=== PATIENT | female | born 1945 | race Caucasian/White ===

== ENCOUNTER 2016-11-17 10:43 | Emergency (ER) | payer MEDICARE, OTHER ==
[2016-11-17 11:41] LABS: BASOPHILS 0.2 % (0.0-2.0); EOSINOPHILS 0.2 % (0-7); HEMATOCRIT 44.5 % (36.0-48.0); IMMATURE GRANULOCYTES 0.2 % (0-5); LYMPHOCYTES 13.2 % (15-50); MCH 30.8 pg (26.0-34.0); MCHC 33.7 g/dL (31.0-37.0); MCV 91.4 fL (80.0-100.0); MEAN PLATELET VOLUME 10.5 fL (7.4-10.4); MONOCYTES 7.6 % (2-11); NEUTROPHILS 78.6 % (40-80); RBC 4.87 10x6/uL (4.00-5.40); RDW 12.6 % (11.5-14.5); WBC 13.8 10x3/uL (4.8-10.8)
[2016-11-17 11:45] LABS: PLATELET COUNT 187 10x3/uL (130-400)
[2016-11-17 12:07] LABS: ALBUMIN 3.8 g/dL (3.4-5.0); ANION GAP 11.3 mmol/L (8-16); BILIRUBIN - TOTAL 0.59 mg/dL (0.2-1.3); CALCIUM 9.8 mg/dL (8.5-10.1); CARBON DIOXIDE 29.5 mmol/L (21.0-32.0); CREATININE - SERUM 0.8 mg/dL (0.6-1.3); POTASSIUM - SERUM 3.8 mmol/L (3.5-5.1); PROTEIN - SERUM 7.9 g/dL (6.4-8.2)
[2016-11-17 12:12] LABS: APPEARANCE CLEAR (CLEAR); BILIRUBIN NEGATIVE (NEGATIVE); COLOR YELLOW (YELLOW); GLUCOSE NEGATIVE (NEGATIVE); KETONE NEGATIVE (NEGATIVE); LEUKOCYTE ESTERASE TRACE (NEGATIVE); NITRITE NEGATIVE (NEGATIVE); PROTEIN NEGATIVE (NEGATIVE); UROBILINOGEN NORMAL (NORMAL)
[2016-11-17 12:13] LABS: BACTERIA FEW /hpf (NONE SEEN); EPITHELIAL CELLS 0-5 /hpf (0-5); RED CELLS - URINE OCC /hpf (0-5); WHITE CELLS - URINE 0-5 /hpf (0-5)
== END 2016-11-17 14:04 | disposition home or self-care (01) ==
LOC: D.ER 10:43
PROVIDERS: Emergency Medicine
DX: K57.92 Diverticulitis of intestine, part unspecified, without perforation or abscess without bleeding (principal); E03.9 Hypothyroidism, unspecified

== ENCOUNTER → 2017-03-08 11:01 | Outpatient (CLI) | payer MEDICARE, OTHER | END | disposition home or self-care (01) | LOC: D.MRI 03-05 11:00 | DX: M54.5 Low back pain (principal) ==

== ENCOUNTER 2018-01-20 22:49 | Emergency (ER) | payer MEDICARE, OTHER ==
[2018-01-20 23:23] LABS: HEMATOCRIT 45.1 % (36.0-48.0); HEMOGLOBIN 15.6 g/dL (12-16); LYMPHOCYTES 19.2 % (15-50); MCH 30.5 pg (26.0-34.0); MCHC 34.6 g/dL (31.0-37.0); MCV 88.1 fL (80.0-100.0); MEAN PLATELET VOLUME 10.4 fL (7.4-10.4); NEUTROPHILS 75.6 % (40-80); RBC 5.12 10x6/uL (4.00-5.40); RDW 12.9 % (11.5-14.5)
[2018-01-20 23:24] LABS: PLATELET COUNT 260 10x3/uL (130-400)
[2018-01-20 23:31] LABS: ALBUMIN 3.8 g/dL (3.4-5.0); ALKALINE PHOSPHATASE 70 U/L (46-116); ALT (SGPT) 90 U/L (10-68); BILIRUBIN - TOTAL 0.19 mg/dL (0.2-1.3); CALC OSMOLALITY 275 mosm/kg (275-300); CALCIUM 9.3 mg/dL (8.5-10.1); CARBON DIOXIDE 22.7 mmol/L (21.0-32.0); CHLORIDE - SERUM 103 mmol/L (98-107); CREATININE - SERUM 0.8 mg/dL (0.6-1.3); POTASSIUM - SERUM 3.9 mmol/L (3.5-5.1); PROTEIN - SERUM 8.1 g/dL (6.4-8.2); SODIUM 136 mmol/L (136-145); UREA NITROGEN 22 mg/dL (7-18); eGFR NON AFRICAN AMERICAN 74 mL/min (90-120)
[2018-01-20 23:33] LABS: GLUCOSE 125 mg/dL (74-106)
[2018-01-20 23:40] LABS: CHOL - HDL RATIO 6.1 ratio (2.3-4.1); CHOLESTEROL, TOTAL 261 mg/dL (0-200); CKMB 1.6 U/L (0.0-3.6); CREATINE KINASE 61 UL (21-215); HDL CHOLESTEROL 43 mg/dL (32-96); LDL CHOLESTEROL 189 mg/dL (0-100); LDL-HDL RATIO 4.4 ratio (1.5-3.5); TRIGLYCERIDE 149 mg/dL (30-200); TROPONIN-I < 0.017 ng/mL (0.000-0.060)
== END 2018-01-21 | disposition home or self-care (01) ==
LOC: D.ER 22:49
PROVIDERS: Emergency Medicine
DX: R07.9 Chest pain, unspecified (principal); R00.1 Bradycardia, unspecified

== ENCOUNTER → 2018-05-23 08:16 | Outpatient (CLI) | payer MEDICARE, OTHER | END | disposition home or self-care (01) | LOC: D.CT 08:16 | DX: R05 Cough (principal) ==

== ENCOUNTER → 2018-06-26 11:16 | Outpatient (CLI) | payer MEDICARE, OTHER | END | disposition home or self-care (01) | LOC: D.RAD 11:16 | DX: R76.11 Nonspecific reaction to tuberculin skin test without active tuberculosis (principal) ==

== ENCOUNTER → 2018-09-30 07:09 | Outpatient (CLI) | payer MEDICARE, OTHER | END | disposition home or self-care (01) | LOC: D.US 07:09 | DX: R10.11 Right upper quadrant pain (principal) ==

== ENCOUNTER → 2018-11-08 07:45 | Outpatient (CLI) | payer MEDICARE, BC | END | disposition home or self-care (01) | LOC: D.RT 07:45 | DX: J45.991 Cough variant asthma (principal) ==

== ENCOUNTER 2019-08-24 11:58 | Emergency (ER) | payer MEDICARE, BC ==
[~2019-08-24] VITALS: Ht 162.6 cm; Wt 78.2 kg
[2019-08-24 12:06] VITALS: Ht 162.6 cm; Wt 78.2 kg
[2019-08-24] MEDS ORDERED: SYNTHROID100 MCG PO (12:07)
[2019-08-24 12:28] LABS: BASOPHILS 0.6 % (0-2); EOSINOPHILS 1.5 % (0-7); HEMATOCRIT 45.9 % (36.0-48.0); HEMOGLOBIN 15.6 g/dL (12-16); IMMATURE GRANULOCYTES 0.1 % (0-5); LYMPHOCYTES 28.9 % (15-50); MCH 31.3 pg (26.0-34.0); MCV 92.2 fL (80.0-100.0); MEAN PLATELET VOLUME 10.1 fL (7.4-10.4); NEUTROPHILS 60.9 % (40-80); RBC 4.98 10x6/uL (4.00-5.40); RDW 12.8 % (11.5-14.5); WBC 8.9 10x3/uL (4.8-10.8)
[2019-08-24 12:36] LABS: PLATELET COUNT 204 10x3/uL (130-400)
[2019-08-24 12:43] LABS: APTT 30.8 SECONDS (22.8-39.4); INR 0.97 (0.85-1.17); PROTIME 12.4 SECONDS (11.6-15.0)
[2019-08-24 12:46] LABS: ANION GAP 11.3 mmol/L (8-16); CALCIUM 9.5 mg/dL (8.5-10.1); CARBON DIOXIDE 25.4 mmol/L (21.0-32.0); CREATININE - SERUM 0.9 mg/dL (0.6-1.3); POTASSIUM - SERUM 3.7 mmol/L (3.5-5.1)
[2019-08-24] MEDS ORDERED: OMNICEF300 MG PO (12:58)
[2019-08-24] MEDS ORDERED: HYDROCODON-ACE1 EAC7 PO (12:58)
[2019-08-24 13:39] VITALS: BP 164/75
== END 2019-08-24 13:40 | disposition home or self-care (01) ==
LOC: D.ER 11:58
PROVIDERS: Emergency Medicine
DX: R04.0 Epistaxis (principal)

== ENCOUNTER 2019-11-09 18:39 | Inpatient (IN) | payer MEDICARE, BC ==
[~2019-11-09] VITALS: Ht 162.6 cm; Wt 77.3 kg
[~2019-11-09 18:39] MED LIST: HYDROCODON-ACE1 EAC7 PO; OMNICEF300 MG PO; SYNTHROID100 MCG PO
--- NOTE | 2019-11-09 20:50 | NUR ---
GAVE SANDWICH AND APPLESAUCE FOR SHACK, PER REQUEST FOR FOOD.
[2019-11-09 21:04] LABS: ANION GAP 17.8 mmol/L (8-16); CALCIUM 9.2 mg/dL (8.5-10.1); CARBON DIOXIDE 21.3 mmol/L (21.0-32.0); CREATININE - SERUM 0.9 mg/dL (0.6-1.3); POTASSIUM - SERUM 4.1 mmol/L (3.5-5.1)
[2019-11-09 21:17] VITALS: BP 170/69
[2019-11-09 21:19] LABS: ALBUMIN 4.1 g/dL (3.4-5.0); BILIRUBIN - TOTAL 0.42 mg/dL (0.2-1.3); PROTEIN - SERUM 7.5 g/dL (6.4-8.2); THYROID STIMULATING HORMONE 1.19 uIU/mL (0.36-3.74)
[2019-11-09 21:23] LABS: BASOPHILS 0.3 % (0-2); EOSINOPHILS 0.5 % (0-7); HEMATOCRIT 44.8 % (36.0-48.0); HEMOGLOBIN 15.2 g/dL (12-16); IMMATURE GRANULOCYTES 0.2 % (0-5); MCH 30.7 pg (26.0-34.0); MCHC 33.9 g/dL (31.0-37.0); MCV 90.5 fL (80.0-100.0); MEAN PLATELET VOLUME 10.5 fL (7.4-10.4); MONOCYTES 4.4 % (2-11); NEUTROPHILS 80.6 % (40-80); PLATELET COUNT 224 10x3/uL (130-400); RBC 4.95 10x6/uL (4.00-5.40); RDW 12.8 % (11.5-14.5)
[2019-11-09 21:32] LABS: INR 0.96 (0.85-1.17); PROTIME 12.3 SECONDS (11.6-15.0)
--- NOTE | 2019-11-09 21:35 | NUR ---
PT ARRIVED ON UNIT VIA WHEELCHAIR ESCORTED BY ER NURSE AND SPOUSE. ORIENTED TO ROOM AND CALL LIGHT. POSITIONED IN BED FOR COMFORT. DRESSING ON HEAD SOILED WITH BLOOD...REMOVED AND REPLACED WITH 4X4 GAUZE WRAPPED WITH KERLEX.
[2019-11-09] MEDS ORDERED: VITAMIN D250000 UNIT PO (22:03)
[2019-11-09 22:39] VITALS: BP 163/64; Ht 162.6 cm; Wt 77.3 kg
--- NOTE | 2019-11-09 23:02 | NUR ---
ADMISSION ASSESSMENT AND HISTORY COMPLETE.
--- NOTE | 2019-11-09 23:02 | NUR ---
PT IS JOVAHAH'S WITNESS AND DOES NOT RECEIVE BLOOD OR BLOOD PRODUCTS.
[2019-11-10] VITALS: BP 124/56
[2019-11-10 04:00] VITALS: BP 121/65
[2019-11-10 06:38] LABS: ANION GAP 13.2 mmol/L (8-16); CALCIUM 9.3 mg/dL (8.5-10.1); CARBON DIOXIDE 23.7 mmol/L (21.0-32.0); CREATININE - SERUM 0.8 mg/dL (0.6-1.3); MAGNESIUM - SERUM 2.2 mg/dL (1.8-2.4); PHOSPHOROUS 3.6 mg/dL (2.5-4.9); POTASSIUM - SERUM 3.9 mmol/L (3.5-5.1)
[2019-11-10 06:45] LABS: BASOPHILS 0.3 % (0-2); EOSINOPHILS 0.3 % (0-7); HEMOGLOBIN 13.8 g/dL (12-16); IMMATURE GRANULOCYTES 0.1 % (0-5); LYMPHOCYTES 27.6 % (15-50); MCH 30.1 pg (26.0-34.0); MCHC 33.7 g/dL (31.0-37.0); MCV 89.5 fL (80.0-100.0); MEAN PLATELET VOLUME 11.3 fL (7.4-10.4); NEUTROPHILS 63.7 % (40-80); PLATELET COUNT 190 10x3/uL (130-400); RBC 4.58 10x6/uL (4.00-5.40); RDW 12.8 % (11.5-14.5)
[2019-11-10 06:46] LABS: WBC 8.7 10x3/uL (4.8-10.8)
[2019-11-10 08:11] VITALS: BP 110/54
--- NOTE | 2019-11-10 09:44 | NUR ---
ASSESSMENT DONE. DENIES NEEDS
--- NOTE | 2019-11-10 10:35 | NUR ---
I have reviewed this patient and I concur with the Shift Assessment completed by the Licensed Practical Nurse today this shift.
[2019-11-10 14:04] VITALS: BP 116/60
[2019-11-10 16:18] VITALS: BP 124/61
[2019-11-10 20:00] VITALS: BP 141/56
--- NOTE | 2019-11-10 21:00 | NUR ---
A/O WITH NO SIGNS OF DISTRESS. IV TO THE RT FOREARM WITH NO REDNESS OR SWELLING. BRISK PUPIL REACTION. AT BEDSIDE. DENIES NO NEEDS AT THIS TIME. CONTINUE PLAN OF CARE.
[2019-11-11] VITALS: BP 115/59
[2019-11-11 04:00] VITALS: BP 116/52
[2019-11-11 06:47] LABS: BASOPHILS 0.5 % (0-2); EOSINOPHILS 2.2 % (0-7); HEMATOCRIT 41.9 % (36.0-48.0); IMMATURE GRANULOCYTES 0.1 % (0-5); LYMPHOCYTES 33.2 % (15-50); MCH 30.4 pg (26.0-34.0); MCHC 33.4 g/dL (31.0-37.0); MCV 91.1 fL (80.0-100.0); MONOCYTES 8.1 % (2-11); NEUTROPHILS 55.9 % (40-80); PLATELET COUNT 186 10x3/uL (130-400); WBC 7.7 10x3/uL (4.8-10.8)
[2019-11-11 06:55] LABS: ALBUMIN 3.3 g/dL (3.4-5.0); ANION GAP 11.5 mmol/L (8-16); BILIRUBIN - TOTAL 0.37 mg/dL (0.2-1.3); CARBON DIOXIDE 25.2 mmol/L (21.0-32.0); CREATININE - SERUM 0.9 mg/dL (0.6-1.3); POTASSIUM - SERUM 3.7 mmol/L (3.5-5.1); PROTEIN - SERUM 6.8 g/dL (6.4-8.2)
--- NOTE | 2019-11-11 08:00 | NUR ---
ASSESSMENT PER FLOW SHEET. PT IS WITHOUT DISTRESS. HOPES TO DC TODAY.CALL LIGHT IN REACH.DOOR OPEN
[2019-11-11 08:01] VITALS: BP 134/67
--- NOTE | 2019-11-11 12:43 | MORECARE ---
CASE MANAGEMENT DISCHARGE SUMMARY PATIENT: ISABELLA OHARA UNIT: [id number] ADM DATE: 11/10/19 AGE: 74 : 43 SEX: F ROOM/BED: D.2231 AUTHOR: SHAHRZAD MCGHEE PHYSICIAN: REFERRING PHYSICIAN: SAMANTHA STOUT MD DATE OF SERVICE: 11/11/19 Discharge Plan Patient Name: ISABELLA OHARA Facility: [facility]:[place] : 1945 Planned Disposition: Home Anticipated Discharge Date: 11/11/19 Discharge Date: Expected LOS: 1 Initial Reviewer: [email or web address] Initial Review Date: 11/11/2019 Generated: 11/11/19 1:43 pm Comments DCP- Discharge Planning Updated by [email or web address]: Mary Espinosa on 11/11/19 11:[address] Patient Name: ISABELLA OHARA Admission Status: ER Accout number: [id number] Admission Date: 11-10-2019 : 1945 Admission Diagnosis: Attending: SAMANTHA STOUT Current LOS: 1 Anticipated DC Date: 11-11-2019 Planned Disposition: Home Primary Insurance: MEDICARE A & B Discharge Planning Comments: CM met with patient to complete initial dc planning assessment. CM educated patient on the CM role and verbal consent given by patient to complete assessment. Patient lives at home with her . At discharge patient plans to return and feels this is a safe discharge. CM discussed availability of home health, rehab services, and medical equipment. Patient denied known discharge needs at this time. CM will continue to follow and will assist as needed with dc plans/needs. Supervisor Finishing: Mary Espinosa DCPIA - Discharge Planning Initial Assessment Updated by [id number]: Mary Espinosa on 11/11/19 12:41 pm * Is the patient Alert and Oriented? Yes * How many steps to enter\exit or inside your home? 0/0 * PCP Dr. Roldan * Pharmacy [facility] * Preadmission Environment Home with Family * ADLs Independent * Equipment None * List name and contact numbers for known caregivers / representatives who currently or will assist patient after discharge: Martínez Ohara - [facility] - [phone] * Verbal permission to speak to the caregivers and representatives has been obtained from the patient. Yes * Community resources currently utilized None * Additional services required to return to the preadmission environment? No * Can the patient safely return to the preadmission environment? Yes * Has this patient been hospitalized within the prior 30 days at any hospital? No Patient Name: ISABELLA OHARA Page [id number] at 1243 All edits/amendments must be made on the electronic document DICTATION DATE: 11/11/191242 TIGER MACHINE OPERATOR: EILEEN 11/11/19 1243 RPT#: [id number] DC DATE: STATUS: ADM IN [facility] [address] [place] [address] END OF REPORT
--- NOTE | 2019-11-11 13:13 | NUR ---
IV DCD WITH CATH TIP INTACT. DISCHARGE INSTRUCTIONS,STATES UNDERSTANDING.
--- NOTE | 2019-11-11 13:22 | NUR ---
LEFT UNIT VIA WHEELCHAIR FOR TRANSPORT HOME
--- NOTE | 2019-11-12 18:17 | MORECARE ---
CASE MANAGEMENT DISCHARGE SUMMARY PATIENT: ISABELLA OHARA UNIT: [id number] ADM DATE: 11/10/19 AGE: 74 : 44 SEX: F ROOM/BED: D.2231 AUTHOR: TAZDOC PHYSICIAN: REFERRING PHYSICIAN: SAMANTHA STOUT MD DATE OF SERVICE: 11/12/19 Discharge Plan Patient Name: ISABELLA OHARA Facility: [facility]:[place] : 1945 Planned Disposition: Home Anticipated Discharge Date: 11/11/19 Discharge Date: 11/11/2019 Expected LOS: 1 Initial Reviewer: [email or web address] Initial Review Date: 11/11/2019 Generated: 11/12/19 7:17 pm Comments DCP- Discharge Planning Updated by [email or web address]: Mary Espinosa on 11/11/19 11:[address] Patient Name: ISABELLA OHARA Admission Status: ER Accout number: [id number] Admission Date: 11-10-2019 : 1945 Admission Diagnosis: Attending: SAMANTHA STOUT Current LOS: 1 Anticipated DC Date: 11-11-2019 Planned Disposition: Home Primary Insurance: MEDICARE A & B Discharge Planning Comments: CM met with patient to complete initial dc planning assessment. CM educated patient on the CM role and verbal consent given by patient to complete assessment. Patient lives at home with her . At discharge patient plans to return and feels this is a safe discharge. CM discussed availability of home health, rehab services, and medical equipment. Patient denied known discharge needs at this time. CM will continue to follow and will assist as needed with dc plans/needs. Waist Cutter: Mary Espinosa DCPIA - Discharge Planning Initial Assessment Updated by [id number]: Mary Espinosa on 11/11/19 12:41 pm * Is the patient Alert and Oriented? Yes * How many steps to enter\exit or inside your home? 0/0 * PCP Dr. Roldan * Pharmacy [facility] * Preadmission Environment Home with Family * ADLs Independent * Equipment None * List name and contact numbers for known caregivers / representatives who currently or will assist patient after discharge: Martínez Ohara - [facility] - [phone] * Verbal permission to speak to the caregivers and representatives has been obtained from the patient. Yes * Community resources currently utilized None * Additional services required to return to the preadmission environment? No * Can the patient safely return to the preadmission environment? Yes * Has this patient been hospitalized within the prior 30 days at any hospital? No Last DP export: 11/11/19 11:43 am Patient Name: ISABELLA OHARA Page [id number] at 1817 All edits/amendments must be made on the electronic document DICTATION DATE: 11/12/191816 FLATBED DRIVER: EILEEN 11/12/191816 RPT#: [id number] DC DATE:11/11/19 STATUS: DIS IN [facility] [address] [place] [address] END OF REPORT
== END 2019-11-11 13:22 | disposition home or self-care (01) | DRG 90 ==
LOC: D.ER 18:39 → D.MS 20:30 → OBSVTIME 20:30 → D.MS 11-10 12:27
PROVIDERS: Family Medicine; ADMIT Emergency Medicine; ATTEND Emergency Medicine
DX: S06.0X0A Concussion without loss of consciousness, initial encounter (principal); W18.30XA Fall on same level, unspecified, initial encounter; S00.93XA Contusion of unspecified part of head, initial encounter; R04.0 Epistaxis

== ENCOUNTER → 2019-12-04 07:49 | Outpatient (CLI) | payer MEDICARE, BC ==
[2019-11-09 22:39] VITALS: BMI 29.2
[~2019-12-04 07:49] MED LIST changes: +VITAMIN D250000 UNIT PO
[2019-12-04 08:23] LABS: BASOPHILS 0.3 % (0-2); EOSINOPHILS 2.5 % (0-7); HEMATOCRIT 46.6 % (36.0-48.0); HEMOGLOBIN 15.7 g/dL (12-16); IMMATURE GRANULOCYTES 0.2 % (0-5); LYMPHOCYTES 28.2 % (15-50); MCH 30.3 pg (26.0-34.0); MCHC 33.7 g/dL (31.0-37.0); MEAN PLATELET VOLUME 10.7 fL (7.4-10.4); MONOCYTES 7.8 % (2-11); PLATELET COUNT 166 10x3/uL (130-400); RBC 5.18 10x6/uL (4.00-5.40); WBC 6.1 10x3/uL (4.8-10.8)
[2019-12-04 08:55] LABS: % SATURATION 34 % (15-55); IRON 113 ug/dl (35-150); TOTAL IRON BIND CAPACITY 327 ug/dl (260-445); UNSAT IRON BIND CAPACITY 214 ug/dl (150-375)
[2019-12-04 08:58] LABS: ALBUMIN 3.8 g/dL (3.4-5.0); ALKALINE PHOSPHATASE 71 U/L (30-120); ALT (SGPT) 64 U/L (10-68); BILIRUBIN - DIRECT 0.09 mg/dL (0.00-0.30); BILIRUBIN - INDIRECT 0.47 mg/dL (0.00-1.00); BILIRUBIN - TOTAL 0.56 mg/dL (0.2-1.3); FERRITIN 174 ng/mL (3-244); GAMMA GT 15 U/L (5-85); PROTEIN - SERUM 7.8 g/dL (6.4-8.2)
[2019-12-05 06:09] LABS: ANA REFLEX - DIRECT Negative (Negative)
[2019-12-05 12:10] LABS: HAPTOGLOBIN 145 mg/dL (42-346)
[2019-12-07 15:08] LABS: MITOCHONDRIAL ANTIBODY <20.0 Units (0.0-20.0); SMOOTH MUSCLE ABS (ACTIN) 12 Units (0-19)
== END | disposition home or self-care (01) ==
LOC: D.LAB 07:49 → D.US 08:30
PROVIDERS: ATTEND Internal Medicine Gastroenterology
DX: R74.8 Abnormal levels of other serum enzymes (principal)

== ENCOUNTER → 2020-06-01 09:35 | Outpatient (CLI) | payer MEDICARE, BC ==
[2019-11-09 22:39] VITALS: BMI 29.2
[2020-06-01 10:12] LABS: ALBUMIN 3.7 g/dL (3.4-5.0); BILIRUBIN - DIRECT 0.13 mg/dL (0.00-0.30); BILIRUBIN - INDIRECT 0.38 mg/dL (0.00-1.00); BILIRUBIN - TOTAL 0.51 mg/dL (0.2-1.3); PROTEIN - SERUM 7.3 g/dL (6.4-8.2)
== END | disposition home or self-care (01) ==
LOC: D.LAB 09:35 → D.US 10:00
PROVIDERS: ATTEND Internal Medicine Gastroenterology
DX: K76.0 Fatty (change of) liver, not elsewhere classified (principal)